=== PATIENT | female | born 1965 | race Two or more races ===

== ENCOUNTER → 2025-01-31 | Outpatient (CLI) | payer BC, SELFPAY ==
--- NOTE | 2025-01-31 | XR_ITS ---
Examination: Lumbar spine, 5 views Technique: Lumbar spine AP, lateral, coned lateral lower lumbar spine, bilateral obliques 5 views Exam date and time: January 31, 2025, 1140 hours INDICATIONS: Low back pain beginning 2 months ago. FINDINGS: Adequate alignment lumbar vertebral bodies Transitional S1 vertebral body Mild disc narrowing L4-L5, L5-S1 No lumbar fracture Moderate diffuse facet arthropathy IMPRESSION: Mild degenerative disc disease L4-L5, L5-S1
== END | disposition home or self-care (01) ==
LOC: CDIM 10:54
PROVIDERS: PCP Family Medicine; Referring Provider Family Medicine; Visit Provider Family Medicine
DX: M51.360 Other intervertebral disc degeneration, lumbar region with discogenic back pain only (principal); M51.370 Other intervertebral disc degeneration, lumbosacral region with discogenic back pain only
CPT/HCPCS: 72110